=== PATIENT | male | born 1970 | race Caucasian/White ===

== ENCOUNTER 2017-02-11 02:51 | Emergency (ER) | payer MEDICAID ==
[2017-02-11 03:22] VITALS: BP 144/93; PULSE 95; RESP 18; TEMP 98.1; O2SAT 98
[2017-02-11] MEDS ORDERED: Sodium Chloride 0.9% 1,000 ML IV SCH (03:45)
--- NOTE | 2017-02-11 03:50 | ED PDOC ---
HPI: Back Additional Complaint(s): CC: Back Pain 46M p/w acute onset of lower back pain while walking this afternoon at 1:00pm and reports it developed into difficulty urinating. He describes the pain as sharp, constant, and radiating into his RIGHT leg. He denies fevers, chills, SOB, chest pain/palpitations, diarrhea, abdominal pain, N/V. PMH: Asthma, HTN PSH: NKDA KONSTANTIN: Norvasc, Coreg, HCTZ Allergies: PCN (Hives) <Radha Theodore - Last Filed: 02/11/17 04:36> <Nik Hood - Last Filed: 02/11/17 05:11> Time Seen by Provider: 02/11/17 03:28 Chief Complaint (Nursing): Back Pain Past Medical History Vital Signs: Last Vital Signs Temp 36.7 C 02/11/17 03:18 Pulse 95 H 02/11/17 03:18 Resp 18 02/11/17 03:18 BP 144/93 H 02/11/17 03:18 Pulse Ox 98 02/11/17 03:18 - Family History Family History: States: No Known Family Hx <Radha Theodore - Last Filed: 02/11/17 04:36> Vital Signs: Last Vital Signs Temp 98.1 F 02/11/17 03:18 Pulse 95 H 02/11/17 03:18 Resp 18 02/11/17 03:18 BP 144/93 H 02/11/17 03:18 Pulse Ox 98 02/11/17 04:36 <Nik Hood - Last Filed: 02/11/17 05:11> - Home Medications Home Medications: Ambulatory Orders Medication Instructions Recorded Cyclobenzaprine [Cyclobenzaprine 10 mg PO BID #15 tab 02/11/17 HCl] Lidocaine 1 patch TP DAILY #5 tdm 02/11/17 - Allergies Allergies/Adverse Reactions: Allergies Allergy/AdvReac Type Severity Reaction Status Date / Time Penicillins Allergy unknown by Verified 02/11/17 03:18 patient (from childhood) Supervising Attending Note - Attestation: I have personally seen and examined this patient.: Yes I have fully participated in the care of the patient.: Yes I have reviewed all pertinent clinical information: Yes <Nik Hood - Last Filed: 02/11/17 05:11> Review of Systems ROS Statement: Except As Marked, All Systems Reviewed And Found Negative Musculoskeletal: Positive for: Back Pain <[email or web address] - Last Filed: 02/11/17 04:36> Physical Exam - Physical Exam Appears: Positive for: Well, Non-toxic Head Exam: Positive for: ATRAUMATIC Skin: Positive for: Normal Color, Warm, Dry Eye Exam: Positive for: EOMI Neck: Positive for: Normal, Supple Cardiovascular/Chest: Positive for: Regular Rate, Rhythm Respiratory: Positive for: Normal Breath Sounds. Negative for: Crackles, Rhonchi, Wheezing Gastrointestinal/Abdominal: Positive for: Bowel Sounds, Soft. Negative for: Tenderness Back: Positive for: Normal Inspection (In general, pt did not allow physical exam) Extremity: Positive for: Normal ROM <TenishasowmyaRadha - Last Filed: 02/11/17 04:36> - Laboratory Results Result Diagrams: 02/11/17 03:52 02/11/17 03:52 - ECG O2 Sat by Pulse Oximetry: 98 <Valerie Theodorean - Last Filed: 02/11/17 04:36> - Laboratory Results Result Diagrams: 02/11/17 03:52 02/11/17 03:52 <Nik Hood - Last Filed: 02/11/17 05:11> Medical Decision Making Medical Decision MakinM symptoms and history not c/w renal colic, however will r/o nephrolithiasis vs. UTI vs. drug seeking behavior. - Urine Dip, UDS - CBC, CMP - ABD Flat Plate Re-Eval Urine Dip: WNL UDS: Opiate/Cocaine positive CBC: WNL AXR: no evidence for nephrolithiasis Re-Eval 0434 - Urinalysis: WNL - CMP: BUN slightly elevated, TBili- 2.6 Discharge to home <Radha Theodore - Last Filed: 02/11/17 04:36> Disposition - Patient ED Disposition Is Patient to be Admitted: No Counseled Patient/Family Regarding: Studies Performed, Need For Followup, Rx Given - Disposition Disposition: Routine/Home Disposition Time: 04:35 <Radha Theodore - Last Filed: 02/11/17 04:36> <Nik Hood - Last Filed: 02/11/17 05:11> - Clinical Impression Clinical Impression: Back pain - Disposition Referrals: at [place] [Outside] Condition: GOOD Prescriptions: Cyclobenzaprine [Cyclobenzaprine HCl] 10 mg PO BID #15 tab Lidocaine 1 patch TP DAILY #5 tdm Instructions: Acute Low Back Pain (DC), Back Exercises (ED) Forms: [employer] (Welsh)
[2017-02-11 03:54] LABS: BASO # 0.1 K/uL (0.0-0.2); BASO % 1.4 % (0.0-2.0); EOS # 0.4 K/uL (0.0-0.7); EOS % 3.7 % (0.0-4.0); HEMATOCRIT 43.9 % (35.0-51.0); LYMPH # 2.5 K/uL (1.0-4.3); LYMPH % 24.1 % (20.0-40.0); MEAN CELL VOLUME 82.7 fl (80.0-94.0); MEAN CORPUSCULAR HEMOGLOBIN 28.3 pg (27.0-31.0); MEAN CORPUSCULAR HGB CONC 34.2 g/dL (33.0-37.0); MEAN PLATELET VOLUME 10.1 fl (7.2-11.7); MONO # 1.1 K/uL (0.0-0.8); MONO % 10.5 % (0.0-10.0); NEUT # 6.4 K/uL (1.8-7.0); NEUT % 60.3 % (50.0-75.0); RED CELL DISTRIBUTION WIDTH 14.8 % (11.5-14.5); WHITE BLOOD COUNT 10.6 K/uL (4.8-10.8)
[2017-02-11 04:20] LABS: ALB/GLOB RATIO 1.5 (1.0-2.1); ALKALINE PHOSPHATASE 95 U/L (38-126); ALT/SGPT 54 U/L (21-72); AST/SGOT 30 U/L (17-59); BILIRUBIN,TOTAL 2.6 mg/dl (0.2-1.3); BLOOD UREA NITROGEN 21 mg/dl (9-20); CALCIUM 9.3 mg/dL (8.4-10.2); CARBON DIOXIDE 25 mmol/L (22-30); CHLORIDE 105 mmol/L (98-107); GFR AFRICAN-AMERICAN > 60; GLUCOSE,RANDOM 121 mg/dL (75-110); POTASSIUM 3.6 MMOL/L (3.6-5.0); SODIUM 142 mmol/l (132-148); TOTAL PROTEIN 7.7 G/DL (6.3-8.2)
[2017-02-11 04:25] LABS: RBC URINE 1 /hpf (0-3); URINE BILIRUBIN NEGATIVE (NEGATIVE); URINE BLOOD NEGATIVE (NEGATIVE); URINE COLOR YELLOW (YELLOW); URINE GLUCOSE (UA) NEG (Normal); URINE KETONE NEGATIVE (NEGATIVE); URINE LEUKOCYTE ESTERASE NEG Leu/uL (Negative); URINE PROTEIN NEGATIVE (NEGATIVE); WBC URINE 1 /hpf (0-5)
--- NOTE | 2017-02-11 08:15 | RAD ---
HISTORY: r/o kidney stone COMPARISON: No prior. FINDINGS: BOWEL: Normal. No obstruction. No free air. BONES: Normal. OTHER FINDINGS: None. IMPRESSION: No active disease.
== END 2017-02-11 05:30 | disposition home or self-care (01) ==
LOC: H.ER 02:51
DX: M54.5 Low back pain (principal); I10 Essential (primary) hypertension; J45.909 Unspecified asthma, uncomplicated; Z88.0 Allergy status to penicillin
CPT/HCPCS: 74000; 80053; 80324; 80345; 80346; 80349; 80353; 80358; 80361; 81003; 83992; 85025; 96361; 96374; 99282; J1885; J7040